=== PATIENT | male | born 1985 | race Caucasian/White ===

== ENCOUNTER 2022-02-12 22:25 | Emergency (ER) | payer MEDICAID, OTHER ==
[2022-02-12] MEDS ORDERED: SODIUM CHLORIDE 0.9% 1,000 ML IV ONE (22:47)
[2022-02-12] MEDS ORDERED: MORPHINE SULFATE 4 MG/ML SYRINGE IV STA (22:49)
[2022-02-12] MEDS ORDERED: ONDANSETRON 4 MG/2 ML VIAL IVP STA (22:49)
--- NOTE | 2022-02-12 22:56 | ED ---
Skin/Abscess/FB HPI - General Chief complaint: Skin/Abscess/Foreign Body Stated complaint: boil on back Time Seen by Provider: 02/12/22 22:37 Source: patient, RN notes reviewed Mode of arrival: ambulatory Limitations: no limitations - History of Present Illness Initial comments: This is a pleasant 36-year-old male who presents with recurrent abscesses to his right buttock area. Patient states that he initially had an abscess when he was a teenager to the area. However the past months he's had several abscesses. patient had incision and drainage done in late December [facility]. Patient subsequently was seen twice for follow-up in that ER and was put on antibiotics twice. States that the abscess continues to be problematic. He is finish the antibiotics he is now getting drainage from the right buttock area. No headache, no fever or chills, no changes in vision or hearing, no sore throat or difficulty with speech, no neck pain, no chest pain or shortness of breath, no abdominal pain, no nausea or vomiting, no changes in urination or bowel movements, no numbness or tingling, no extremity pain, no skin rashes or lesion s. Past medical, surgical, social, and family history reviewed. No history of MRSA - Related Data Previous Rx's Medication Instructions Recorded Citalopram Hydrobromide [CeleXA] 30 mg PO DAILY@1800 #21 tab 05/30/15 Divalproex [Depakote] 250 mg PO TID #21 tablet. 05/30/15 Clindamycin [Cleocin] 450 mg PO Q8H #90 cap 02/13/22 Allergies Allergy/AdvReac Type Severity Reaction Status Date / Time No Known Allergies Allergy Verified 02/12/22 22:33 Review of Systems ROS Statement: Those systems with pertinent positive or pertinent negative responses have been documented in the HPI. ROS Other: All systems not noted in ROS Statement are negative. Past Medical History Additional Past Medical History / Comment(s): depression, anxiety. Seasonal allergies History of Any Multi-Drug Resistant Organisms: None Reported Past Surgical History: No Surgical Hx Reported Past Anesthesia/Blood Transfusion Reactions: No Reported Reaction Past Psychological History: ADD/ADHD, Anxiety, Depression Smoking Status: Current every day smoker Past Alcohol Use History: Occasional Past Drug Use History: Marijuana - Past Family History Father Family Medical History: Cancer, Coronary Artery Disease (CAD), Myocardial Infarction ([place]), Prostate Disorder Additional Family Medical History / Comment(s): father is alive at age 55 with history of diabetes, coronary artery disease, myocardial infarction, prostate cancer, alcoholism Mother Family Medical History: Hypertension Additional Family Medical History / Comment(s): Mother is alive at age 50 with history of hypertension and hypoglycemia. Patient has 2 brothers and 1 sister with no major medical problems. Patient does not have any children. General Exam - General Exam Comments Initial Comments: Patient does not appear to be systemically ill. Vital signs reviewed. Capillary refill less than 2 seconds. No mottling. Adequate skin turgor. Limitations: no limitations General appearance: alert, in no apparent distress Head exam: Present: atraumatic, normocephalic, normal inspection Eye exam: Present: normal appearance, PERRL, EOMI. Absent: scleral icterus, conjunctival injection, periorbital swelling ENT exam: Present: normal exam, mucous membranes moist Neck exam: Present: normal inspection, full ROM. Absent: tenderness, meningismus, lymphadenopathy Respiratory exam: Present: normal lung sounds bilaterally. Absent: respiratory distress, wheezes, rales, rhonchi, stridor Cardiovascular Exam: Present: regular rate, normal rhythm, normal heart sounds. Absent: systolic murmur, diastolic murmur, rubs, gallop, clicks GI/Abdominal exam: Present: soft, normal bowel sounds. Absent: distended, tenderness, guarding, rebound, rigid Rectal exam: Present: normal inspection, normal rectal tone Extremities exam: Present: normal inspection, full ROM, normal capillary refill. Absent: tenderness, pedal edema, joint swelling, calf tenderness Back exam: Present: normal inspection Neurological exam: Present: alert, oriented X3, CN II-XII intact Psychiatric exam: Present: normal affect, normal mood Skin exam: Present: warm, dry, erythema, other (Patient has a large, multiloculated area encompassing the right buttock. Patient has purulent drainage noted from the area. There may be communication with the rectal wall which is difficult to ascertain.). Absent: rash Course Vital Signs 02/12/22 02/13/22 22:30 00:34 Temperature 98.9 F 98.3 F Pulse Rate 77 65 Respiratory 20 18 Rate Blood Pressure 190/90 145/84 O2 Sat by Pulse 98 96 Oximetry - Reevaluation(s) Reevaluation #1: 02/13/22 00:59 Medical record is reviewed Symptoms are improved here in the emergency department Patient is informed of results and questions answered Patient in no distress Medical Decision Making - Medical Decision Making Physical exam findings consistent with a multiloculated right buttock abscess with possible communication to the rectal wall Computed tomography scan shows skin thickening in the medial right buttock consistent with phlegmon and cellulitis, appears new compared to the old CT. There is increased subcutaneous density involving the medial right buttock measuring up to 1.5 cm in thickness. No drainable fluid collection. Total length of the vomitus approximately 12 cm. Rectum appears to be intact. No perirectal fluid. No evidence scrotal mass. Given the physical exam findings. I believe much of the soft tissue changes related to scar tissue. Patient has had multiple abscesses in the same area. Patient is hemodynamically stable. I did offer incision and drainage to the patient. However he is already having some drainage from the area. Patient is deferring this stating that he will take the antibiotics and continue with warm compresses. We'll have the patient follow-up with the on-call surgeon. Patient was told to return to the ER for any signs or symptoms worsen. Told to return immediately if any other problems arise. All questions answered. Treatment plan discussed. Patient in agreement Every effort has been made to ensure accuracy of this dictation. However, due to the limitations of electronic medical records and dictation devices, errors in charting still occur. The case was discussed in detail with ED attending physician. Presentation, findings, treatment plan discussed in detail. Protection Analyst Dr. Paul - Lab Data Result diagrams: 02/12/22 23:14 02/12/22 23:14 Lab Results 02/12/22 02/12/22 Range/Units 23:14 23:14 WBC 10.4 (3.8-10.6) k/uL RBC 4.56 (4.30-5.90) m/uL Hgb 15.0 (13.0-17.5) gm/dL Hct 43.1 (39.0-53.0) % MCV 94.5 (80.0-100.0) fL MCH 32.9 (25.0-35.0) pg MCHC 34.8 (31.0-37.0) g/dL RDW 12.3 (11.5-15.5) % Plt Count 253 (150-450) k/uL MPV 8.7 Neutrophils % 70 % Lymphocytes % 19 % Monocytes % 7 % Eosinophils % 1 % Basophils % 0 % Neutrophils # 7.3 (1.3-7.7) k/uL Lymphocytes # 2.0 (1.0-4.8) k/uL Monocytes # 0.7 (0-1.0) k/uL Eosinophils # 0.1 (0-0.7) k/uL Basophils # 0.1 (0-0.2) k/uL Sodium 139 (137-145) mmol/L Potassium 3.9 (3.5-5.1) mmol/L Chloride 109 H (98-107) mmol/L Carbon Dioxide 23 (22-30) mmol/L Anion Gap 7 mmol/L BUN 13 (9-20) mg/dL Creatinine 0.85 (0.66-1.25) mg/dL Est GFR (CKD-EPI)AfAm >90 (>60 ml/min/1.73 sqM) Est GFR (CKD-EPI)NonAf >90 (>60 ml/min/1.73 sqM) Glucose 110 H (74-99) mg/dL Calcium 8.7 (8.4-10.2) mg/dL Total Bilirubin 0.4 (0.2-1.3) mg/dL AST 26 (17-59) U/L ALT 25 (4-49) U/L Alkaline Phosphatase 94 (38-126) U/L Total Protein 7.3 (6.3-8.2) g/dL Albumin 4.3 (3.5-5.0) g/dL - Radiology Data Radiology results: report reviewed, image reviewed Interpreted by me: I interpreted the computed tomography scan results. Concur with radiology interpretation Disposition Clinical Impression: Cellulitis and abscess of buttock Disposition: HOME SELF-CARE Condition: Good Additional Instructions: Take antibiotics as directed. Warm compresses for 10-15 minutes at a time 4 times daily. Promote continued drainage. You can call back here in 2-3 days to get the wound culture results. Make an appointment with both the primary care physician, Dr. Wilkinson, and the on-call surgeon, Dr. Rdoriguez. Follow-up with your regular physician as directed. Return to the ER immediately if any symptoms worsen, new symptoms arise, or any other problems develop. Is patient prescribed a controlled substance at d/c from ED?: No Referrals: Isaiah Wilkinson DO [Doctor of Osteopathic Medicine] - 02/17/22 Les Rodriguez MD [STAFF PHYSICIAN] - As Soon As Possible Time of Disposition: 00:59
[2022-02-12] MEDS ORDERED: CLINDAMYCIN 900 MG in DEXTROSE 5% IN WATER 50 ML IVPB ONE ×2 (23:00)
[2022-02-12 23:26] LABS: Basophils # (A) 0.1 k/uL (0-0.2); Basophils % (A) 0 %; Eosinophils # (A) 0.1 k/uL (0-0.7); Eosinophils % (A) 1 %; HCT 43.1 % (39.0-53.0); Lymphocytes % (A) 19 %; MCH 32.9 pg (25.0-35.0); MCHC 34.8 g/dL (31.0-37.0); MCV 94.5 fL (80.0-100.0); Mean Platelet Volume 8.7; Monocytes # (A) 0.7 k/uL (0-1.0); Monocytes % (A) 7 %; Neutrophils # (A) 7.3 k/uL (1.3-7.7); Neutrophils % (A) 70 %; Platelet Count 253 k/uL (150-450); RBC 4.56 m/uL (4.30-5.90); RDW 12.3 % (11.5-15.5); WBC 10.4 k/uL (3.8-10.6)
[2022-02-12 23:40] LABS: ALT 25 U/L (4-49); AST 26 U/L (17-59); African American GFR (CKD) >90 (>60 ml/min/1.73 sqM); Albumin 4.3 g/dL (3.5-5.0); Alkaline Phosphatase 94 U/L (38-126); Anion Gap 7 mmol/L; Blood Urea Nitrogen 13 mg/dL (9-20); Calcium 8.7 mg/dL (8.4-10.2); Carbon Dioxide 23 mmol/L (22-30); Chloride 109 mmol/L (98-107); Glucose 110 mg/dL (74-99); Non-African American GFR(CKD) >90 (>60 ml/min/1.73 sqM); Potassium 3.9 mmol/L (3.5-5.1); Sodium 139 mmol/L (137-145); Total Bilirubin 0.4 mg/dL (0.2-1.3); Total Protein 7.3 g/dL (6.3-8.2)
--- NOTE | 2022-02-13 00:15 | CT ---
EXAMINATION TYPE: CT pelvis w con DATE OF EXAM: 02/12/2022 COMPARISON: 04/06/2015 HISTORY: abscess, right buttock top to bottom. pt has had it lanced & been on antibiotics prior. no p revious on pacs CT DLP: 1437.8 mGycm Automated exposure control for dose reduction was used. CONTRAST: Performed with IV Contrast, patient injected with 100 mL of Isovue 300. Images obtained from the iliac crests to the bottom of the scrotum and the mid shaft of the femurs wi th the IV contrast. There is no free fluid in the pelvis. Bladder distends smoothly. No pelvic mass. No inguinal hernia. No evidence of a bowel obstruction. Appendix is posterior and appears normal. There are sigmoid diver ticula. No diverticulitis. The sacrum and coccyx appear intact. Bony pelvis is intact. Hip joints zeny ear normal. There is increased subcutaneous density involving the medial right buttock that measures up to 1.5 cm in thickness. No drainable fluid collection. The total length of involvement is approximately 12 cm. The rectum appears intact. No perirectal fluid. No evidence of scrotal mass. IMPRESSION: Skin thickening in the medial right buttock consistent with phlegmon and cellulitis. This appears new compared to old CT scan.
[2022-02-13 00:36] VITALS: TEMP 98.3
[2022-02-13 01:59] VITALS: BP 129/84; PULSE 64; RESP 16
== END 2022-02-13 02:01 | disposition home or self-care (01) ==
LOC: EC 22:25
DX: L03.317 Cellulitis of buttock (principal); L02.31 Cutaneous abscess of buttock; F32.A Depression, unspecified; F41.9 Anxiety disorder, unspecified; F17.200 Nicotine dependence, unspecified, uncomplicated; F12.90 Cannabis use, unspecified, uncomplicated
CPT/HCPCS: 36415; 80053; 85025; 87070; 87205; 87075; 72193; 99284; 96365; 96375 ×2; 96376; 96361 ×2; J2270; J2405; Q9967

== ENCOUNTER 2022-04-21 20:08 | Inpatient (IN) | payer OTHER ==
--- NOTE | 2022-04-21 21:51 | ED ---
Skin/Abscess/FB HPI - General Chief complaint: Skin/Abscess/Foreign Body Stated complaint: boil on back Time Seen by Provider: 04/21/22 21:48 Source: patient, RN notes reviewed Mode of arrival: ambulatory Limitations: no limitations - History of Present Illness Initial comments: Patient is a 36-year-old male presenting to the emergency room with complaints of worsening of a cyst to his buttocks. He reports that he has had multiple cysts to his buttocks and reports that his last antibiotic therapy was in February of last year. He reports that the size and areas of drainage have increased significantly. He had been advised in the past that he would need surgical intervention but has not followed up with the surgeon outpatient. He re ports attempting to keep the area clean and dry with no improvement in his abscesses. He denies any systemic symptoms including any chest pain, shortness of breath, abdominal pain, nausea, vomiting, fevers or chills. In addition to recurrent cyst to the buttocks he has a past medical history significant for depression, anxiety, and seasonal allergies. - Related Data Previous Rx's Medication Instructions Recorded Cephalexin [Keflex] 500 mg PO Q6HR 10 Days #40 cap 04/25/22 Allergies Allergy/AdvReac Type Severity Reaction Status Date / Time No Known Allergies Allergy Verified 02/12/22 22:33 Review of Systems ROS Statement: Those systems with pertinent positive or pertinent negative responses have been documented in the HPI. ROS Other: All systems not noted in ROS Statement are negative. Past Medical History Additional Past Medical History / Comment(s): depression, anxiety. Seasonal al lergies History of Any Multi-Drug Resistant Organisms: None Reported Past Surgical History: No Surgical Hx Reported Past Anesthesia/Blood Transfusion Reactions: No Reported Reaction Past Psychological History: ADD/ADHD, Anxiety, Depression Smoking Status: Current every day smoker Past Alcohol Use History: Occasional Past Drug Use History: Marijuana - Past Family History Father Family Medical History: Cancer, Coronary Artery Disease (CAD), Myocardial Infarction ([place]), Prostate Disorder Additional Family Medical History / Comment(s): father is alive at age 55 with history of diabetes, coronary artery disease, myocardial infarction, prostate cancer, alcoholism Mother Family Medical History: Hypertension Additional Family Medical History / Comment(s): Mother is alive at age 50 with history of hypertension and hypoglycemia. Patient has 2 brothers and 1 sister with no major medical problems. Patient does not have any children. General Exam - General Exam Comments Initial Comments: GENERAL: No acute distress, well developed, well nourished. HEENT: Normocephalic, atraumatic. Pupils equal, round, reactive to light. Moist mucous membranes. LUNGS: No respiratory distress. Clear to auscultation, no adventitious sounds, no use of accessory muscles. HEART: Regular rate and rhythm without murmur, rub, or gallop. ABDOMEN: Normal bowel sounds. Soft, non-tender, non-distended. BACK: Normal inspection. EXTREMITIES: No edema. No tenderness. Moves all extremities. NEUROLOGIC: Alert & oriented x 3. CN II-XII grossly intact. PSYCHIATRIC: Normal affect and behavior. DERMATOLOGIC: Right buttocks with multiple abscesses tunneling and induration noted. Foul odor and purulent drainage noted from 3 different sites. Culture obtained from lower midline abscess. Limitations: no limitations Course Vital Signs 04/21/22 04/22/22 21:22 01:04 Temperature 98.2 F Pulse Rate 82 79 Respiratory 14 15 Rate Blood Pressure 162/89 144/84 O2 Sat by Pulse 98 99 Oximetry Medical Decision Making - Medical Decision Making Was pt. sent in by a medical professional or institution (, PA, SENIOR SALES REPRESENTATIVE, urgent care, hospital, or residential...) When possible be specific @ -No Did you speak to anyone other than the patient for history (EMS, parent, family, police, friend...)? What history was obtained from this source @ -No Did you review nursing and triage notes (agree or disagree)? Why? @ -I reviewed and agree with nursing and triage notes Were old charts reviewed (outside hosp., previous admission, EMS record, old EKG, old radiological studies, urgent care reports/EKG's, residential records)? Report findings @ -No old charts were reviewed Differential Diagnosis (chest pain, altered mental status, abdominal pain women, abdominal pain men, vaginal bleeding, weakness, fever, dyspnea, syncope, headache, dizziness, GI bleed, back pain, seizure, CVA, palpatations, mental health)? @ -Differential Fever: Cellulitis, osteomyelitis, sepsis, reoccurring worsening pilonidal cyst, this is not meant to be an all-inclusive list. EKG interpreted by me (3pts min.). @ -None done X-rays interpreted by me (1pt min.). @ -None done CT interpreted by me (1pt min.). @ -None done U/S interpreted by me (1pt. min.). @ -None done What testing was considered but not performed or refused? (CT, X-rays, U/S, labs)? Why? @ -None What meds were considered but not given or refused? Why? @ -None Did you discuss the management of the patient with other professionals (professionals i.e. , PA, SENIOR SALES REPRESENTATIVE, lab, RT, psych nurse, social worker school, sustainable systems analyst, teacher, security public safety officer, rifle case repairer)? Give summary @ -Spoke with Dr. Rivers on-call for [facility] call regarding recommendation for admission. He is accepting of admission. Was smoking cessation discussed for >3mins.? @ -No Was critical care preformed (if so, how long)? @ -No Were there social determinants of health that impacted care today? How? (Homelessness, low income, unemployed, alcoholism, drug addiction, transportation, low edu. Level, literacy, decrease access to med. care, alf, rehab)? @ -No Was there de-escalation of care discussed even if they declined (Discuss DNR or withdrawal of care, Hospice)? DNR status @ -No What co-morbidities impacted this encounter? (DM, HTN, Smoking, COPD, CAD, Cancer, CVA, ARF, Chemo, Hep., AIDS, mental health diagnosis, sleep apnea, morbid obesity)? @ -History of recurrent pilonidal cyst Was patient admitted / discharged? Hospital course, mention meds given and route, prescriptions, significant lab abnormalities, going to OR and other pertinent info. @ -36-year-old male presenting to the emergency room with complaints of increased pain and drainage from right buttocks. Known pilonidal cysts with previous antibiotic treatment without improvement in symptoms. Increase in track and number of abscesses since last antibiotic therapy. No indication for diagnostic imaging at this time, will obtain wound culture, blood cultures, CBC CMP and lactic acid. Will give morphine for pain and start on antibiotic therapy. Labs without abnormalities on CBC, CMP or lactic acid. Cultures pending. Pain improved with morphine and tolerated Rocephin well. Findings discussed with patient at length. Advised that given increase in track and induration though no significant abnormalities on laboratory studies would likely benefit from hospitalization with broadened antibiotic therapy and surgical consult. Patient is agreeable to hospitalization. Spoke with Dr. Rivers on-call for [facility] call regarding recommendation of admission. He is accepting of admission and recommend surgical consult. Will p lace admission orders with surgical consult. Will start on vancomycin with 2 g now then pharmacy to dose. Will admit patient in stable condition to [facility] for continued evaluation and treatment for pilonidal cyst. Undiagnosed new problem with uncertain prognosis? @ -No Drug Therapy requiring intensive monitoring for toxicity (Heparin, Nitro, Insulin, Cardizem)? @ -No Were any procedures done? @ -No Diagnosis/symptom? @ -Pilonidal cysts with track and failed outpatient therapy Acute, or Chronic, or Acute on Chronic? @ -Acute on chronic Uncomplicated (without systemic symptoms) or Complicated (systemic symptoms)? @ -Complicated Side effects of treatment? @ -No Exacerbation, Progression, or Severe Exacerbation? @ -No Poses a threat to life or bodily function? How? (Chest pain, [place], [place], pneumonia, PE, COPD, DKA, ARF, appy, cholecystitis, CVA, Diverticulitis, Homicidal, Suicidal, threat to staff... and all critical care pts) @ -Yes Case discussed with Dr. Calvillo - Lab Data Result diagrams: 04/25/22 05:18 04/25/22 05:18 Lab Results 04/21/22 04/21/22 04/21/22 Range/Units 22:27 22:27 22:27 WBC 8.9 (3.8-10.6) k/uL RBC 4.66 (4.30-5.90) m/uL Hgb 14.9 (13.0-17.5) gm/dL Hct 43.4 (39.0-53.0) % MCV 93.1 (80.0-100.0) fL MCH 31.9 (25.0-35.0) pg MCHC 34.3 (31.0-37.0) g/dL RDW 12.6 (11.5-15.5) % Plt Count 230 (150-450) k/uL MPV 7.5 Neutrophils % 65 % Lymphocytes % 23 % Monocytes % 8 % Eosinophils % 2 % Basophils % 1 % Neutrophils # 5.8 (1.3-7.7) k/uL Lymphocytes # 2.1 (1.0-4.8) k/uL Monocytes # 0.7 (0-1.0) k/uL Eosinophils # 0.1 (0-0.7) k/uL Basophils # 0.1 (0-0.2) k/uL Sodium 139 (137-145) mmol/L Potassium 4.3 (3.5-5.1) mmol/L Chloride 106 (98-107) mmol/L Carbon Dioxide 26 (22-30) mmol/L Anion Gap 7 mmol/L BUN 16 (9-20) mg/dL Creatinine 0.81 (0.66-1.25) mg/dL Est GFR (CKD-EPI)AfAm >90 (>60 ml/min/1.73 sqM) Est GFR (CKD-EPI)NonAf >90 (>60 ml/min/1.73 sqM) Glucose 94 (74-99) mg/dL Plasma Lactic Acid [place] 1.1 (0.7-2.0) mmol/L Calcium 8.8 (8.4-10.2) mg/dL Total Bilirubin 0.7 (0.2-1.3) mg/dL AST 26 (17-59) U/L ALT 26 (4-49) U/L Alkaline Phosphatase 88 (38-126) U/L Total Protein 7.7 (6.3-8.2) g/dL Albumin 4.3 (3.5-5.0) g/dL Disposition Clinical Impression: Pilonidal cyst with abscess Disposition: ADMITTED IP TO THIS [facility] Condition: Good Is patient prescribed a controlled substance at d/c from ED?: No Time of Disposition: 23:55
[2022-04-21 22:48] LABS: Basophils # (A) 0.1 k/uL (0-0.2); Basophils % (A) 1 %; Eosinophils # (A) 0.1 k/uL (0-0.7); Eosinophils % (A) 2 %; HCT 43.4 % (39.0-53.0); HGB 14.9 gm/dL (13.0-17.5); Lymphocytes # (A) 2.1 k/uL (1.0-4.8); Lymphocytes % (A) 23 %; MCH 31.9 pg (25.0-35.0); MCHC 34.3 g/dL (31.0-37.0); MCV 93.1 fL (80.0-100.0); Mean Platelet Volume 7.5; Monocytes # (A) 0.7 k/uL (0-1.0); Monocytes % (A) 8 %; Neutrophils # (A) 5.8 k/uL (1.3-7.7); Neutrophils % (A) 65 %; Platelet Count 230 k/uL (150-450); RBC 4.66 m/uL (4.30-5.90); RDW 12.6 % (11.5-15.5); WBC 8.9 k/uL (3.8-10.6)
[2022-04-21] MEDS ORDERED: MORPHINE SULFATE 4 MG/ML SYRINGE IVP STA (22:51)
[2022-04-21] MEDS ORDERED: cefTRIAXone IN SWFI 1,000 MG/10 ML SYRINGE IVP ONE (23:00)
[2022-04-21 23:08] LABS: ALT 26 U/L (4-49); AST 26 U/L (17-59); African American GFR (CKD) >90 (>60 ml/min/1.73 sqM); Albumin 4.3 g/dL (3.5-5.0); Alkaline Phosphatase 88 U/L (38-126); Anion Gap 7 mmol/L; Blood Urea Nitrogen 16 mg/dL (9-20); Calcium 8.8 mg/dL (8.4-10.2); Carbon Dioxide 26 mmol/L (22-30); Chloride 106 mmol/L (98-107); Glucose 94 mg/dL (74-99); Non-African American GFR(CKD) >90 (>60 ml/min/1.73 sqM); Potassium 4.3 mmol/L (3.5-5.1); Sodium 139 mmol/L (137-145); Total Bilirubin 0.7 mg/dL (0.2-1.3); Total Protein 7.7 g/dL (6.3-8.2)
[2022-04-22] MEDS ORDERED: ACETAMINOPHEN TAB 325 MG TAB PO PRN (00:05)
[2022-04-22] MEDS ORDERED: NALOXONE 0.4 MG/ML 1 ML VIAL IV PRN (00:05)
[2022-04-22] MEDS ORDERED: VANCOMYCIN IV PER PHARMACY 1 EACH MISC MISCELLANE PRN (00:07)
[2022-04-22] MEDS ORDERED: VANCOMYCIN 2,000 MG in SODIUM CHLORIDE 0.9% 500 ML 500 ML IVPB ONE (01:00)
[2022-04-22] MEDS: NICOTINE 21MG/24HR PATCH TRANSDERM SCH (08:42)
[2022-04-22] MEDS: MORPHINE SULFATE 4 MG/ML SYRINGE IV PRN ×2 (09:53→18:13)
[2022-04-22] MEDS: VANCOMYCIN 1,750 MG in SODIUM CHLORIDE 0.9% 500 ML 500 ML IVPB SCH ×2 (10:49→18:00)
[2022-04-22] MEDS: HYDROcodone/APAP 5-325MG 1 EACH TAB PO PRN (13:32)
[2022-04-22] MEDS: IOPAMIDOL CONTRAST (ORAL USE) VIAL PO PRN ×2 (14:39→15:33)
[2022-04-22] MEDS ORDERED: DIVALPROEX 250 MG TABLET.DR PO SCH (16:00)
--- NOTE | 2022-04-22 16:23 | P.GSCN ---
History of Present Illness Consult date: 04/22/22 History of present illness: CHIEF COMPLAINT: Right buttocks abscess HISTORY OF PRESENT ILLNESS: This is a 36-year-old male with a known history of pilonidal cyst. Patient supposedly failed outpatient treatment of the power model cyst. He's had this cyst for about 7 years. Patient reports that he has now developed multiple cysts along the right but I'll ask. He had a laceration of to the areas in the ER at [facility] and was discharged with antibiotics. However, the abscesses have reformed. He has mild drainage from the lower abscess on the right buttocks. I he does report pain. Denies any fever chills or sweats. Patient has had a prior recommendation to follow-up with the surgeon however patient had declined in the past. Denies any history of diabetes. Patient seen and examined with Dr. spivey PAST MEDICAL HISTORY: See below PAST SURGICAL HISTORY: See below MEDICATIONS: See below ALLERGIES: See below SOCIAL HISTORY: No illicit drug use. REVIEW OF SYSTEMS: CONSTITUTIONAL: Denies fever or chills. HEENT: Denies blurred vision, vision changes, or eye pain. Denies hemoptysis CARDIOVASCULAR: Denies chest pain or pressure. RESPIRATORY: No shortness of breath. GASTROINTESTINAL: See HPI for pertinent findings HEMATOLOGIC: Denies bleeding disorders. GENITOURINARY: Denies any blood in urine or increased urinary frequency. SKIN: Denies pruitis. Denies rash. PHYSICAL EXAM: VITAL SIGNS: Reviewed GENERAL: Well-developed in no acute distress. HEENT: No sclera icterus. Extraocular movements grossly intact. Moist buccal mucosa. Head is atraumatic, normocephalic. No nasal drainage. ABDOMEN: Soft. Nondistended. Nontender NEUROLOGIC: Alert and oriented. Cranial nerves II through XII grossly intact. Buttocks: 4 areas of induration and tenderness noted on the right gluteus. Minimal drainage noted from the abscess the distal aspect of the right gluteus. Also noted bruising around the abscessed areas. Very small nontender pilonidal cyst noted. LABORATORY DATA: WBC is 8.9 Hgb 14.9 platelets 2:30 Sodium is 139 potassium 4.3 creatinine 0.81 Lactic acid 1.1 IMAGING: ASSESSMENT: 1. Multiple right gluteal abscesses PLAN: -Computed tomography scan of the pelvis ordered for evaluation of gluteal abscess -Continue IV antibiotics -Continue supportive care continue supportive care -further recommendations forthcoming depending on computed tomography scan results Physician Neonatal Specialist note has been reviewed by physician. Signing provider agrees with the documented findings, assessment, and plan of care. Past Medical History Additional Past Medical History / Comment(s): Seasonal allergies. History of Any Multi-Drug Resistant Organisms: None Reported Past Surgical History: No Surgical Hx Reported Additional Past Surgical History / Comment(s): Cyst removed from cheek as a child. Past Anesthesia/Blood Transfusion Reactions: No Reported Reaction Past Psychological History: ADD/ADHD, Anxiety, Depression Smoking Status: Current every day smoker Past Alcohol Use History: Abuse, Daily Additional Past Alcohol Use History / Comment(s): Patient states he drinks about 6 beers a day. Past Drug Use History: Marijuana - Past Family History Father Family Medical History: Cancer, Coronary Artery Disease (CAD), Myocardial Infarction ([place]), Prostate Disorder Additional Family Medical History / Comment(s): father is alive at age 55 with history of diabetes, coronary artery disease, myocardial infarction, prostate cancer, alcoholism Mother Family Medical History: Hypertension Additional Family Medical History / Comment(s): Mother is alive at age 50 with history of hypertension and hypoglycemia. Patient has 2 brothers and 1 sister with no major medical problems. Patient does not have any children. Medications and Allergies Home Medications Medication Instructions Recorded Confirmed Type No Known Home Medications 04/22/22 04/22/22 History Allergies Allergy/AdvReac Type Severity Reaction Status Date / Time No Known Allergies Allergy Verified 02/12/22 22:33 Surgical - Exam Vital Signs Temp Pulse Resp BP Pulse Ox 98.2 F 82 14 162/89 98 04/21/22 21:22 04/21/22 21:22 04/21/22 21:22 04/21/22 21:22 04/21/22 21:22 Results - Labs 04/21/22 22:27 04/21/22 22:27 Diabetes panel 04/21/22 Range/Units 22:27 Sodium 139 (137-145) mmol/L Potassium 4.3 (3.5-5.1) mmol/L Chloride 106 (98-107) mmol/L Carbon Dioxide 26 (22-30) mmol/L BUN 16 (9-20) mg/dL Creatinine 0.81 (0.66-1.25) mg/dL Glucose 94 (74-99) mg/dL Calcium 8.8 (8.4-10.2) mg/dL AST 26 (17-59) U/L ALT 26 (4-49) U/L Alkaline Phosphatase 88 (38-126) U/L Total Protein 7.7 (6.3-8.2) g/dL Albumin 4.3 (3.5-5.0) g/dL Calcium panel 04/21/22 Range/Units 22:27 Calcium 8.8 (8.4-10.2) mg/dL Albumin 4.3 (3.5-5.0) g/dL Pituitary panel 04/21/22 Range/Units 22:27 Sodium 139 (137-145) mmol/L Potassium 4.3 (3.5-5.1) mmol/L Chloride 106 (98-107) mmol/L Carbon Dioxide 26 (22-30) mmol/L BUN 16 (9-20) mg/dL Creatinine 0.81 (0.66-1.25) mg/dL Glucose 94 (74-99) mg/dL Calcium 8.8 (8.4-10.2) mg/dL Adrenal panel 04/21/22 Range/Units 22:27 Sodium 139 (137-145) mmol/L Potassium 4.3 (3.5-5.1) mmol/L Chloride 106 (98-107) mmol/L Carbon Dioxide 26 (22-30) mmol/L BUN 16 (9-20) mg/dL Creatinine 0.81 (0.66-1.25) mg/dL Glucose 94 (74-99) mg/dL Calcium 8.8 (8.4-10.2) mg/dL Total Bilirubin 0.7 (0.2-1.3) mg/dL AST 26 (17-59) U/L ALT 26 (4-49) U/L Alkaline Phosphatase 88 (38-126) U/L Total Protein 7.7 (6.3-8.2) g/dL Albumin 4.3 (3.5-5.0) g/dL
--- NOTE | 2022-04-22 16:28 | CT ---
EXAMINATION TYPE: CT pelvis w con CT DLP: 1320.0 mGycm, Automated exposure control for dose reduction was used. DATE OF EXAM: 04/22/2022 4:[address] pelvis 02/12/2022. CLINICAL INDICATION:Male, 36 years old with history of right gluteal abscess; TECHNIQUE: Standard CT of the pelvis following the administration of 70 cc of Isovue 300 IV contras t material and oral contrast. Coronal and sagittal reformats were performed. FINDINGS: BLADDER: Incompletely distended but grossly unremarkable. REPRODUCTIVE: Unremarkable. BOWEL: Colonic diverticulosis without evidence for acute diverticulitis. Enteric contrast reaches the mid small bowel. The appendix is within normal limits. No evidence of bowel obstruction. PERITONEUM: No evidence of pneumoperitoneum or free fluid. VASCULATURE: Unremarkable. MUSCULOSKELETAL: No acute osseous abnormalities LYMPH NODES: Stable right inguinal enlarged lymph nodes measuring up to 1.5 cm short axis. SOFT TISSUE/ABDOMINAL WALL: There is similar increased curvilinear subcutaneous density above the med ial right buttock that measures up to 1.3 cm in thickness, previously 1.6 cm. This extends along the right buttocks towards the anus approximately 10.3 cm in length similar to prior exam. There is adjac ent fat stranding. No drainable fluid collection identified. IMPRESSION: 1. Similar skin thickening in the medial right buttock without drainable fluid collection. Findings suggest phlegmon with cellulitis versus possible perianal fistula. 2. Stable right inguinal enlarged lymph nodes, likely reactive to #1.
[2022-04-22] MEDS ORDERED: CITALOPRAM HYDROBROMIDE 10 MG TAB PO SCH (18:00)
--- NOTE | 2022-04-22 22:00 | P.CONS ---
History of Present Illness - Reason for Consult Consult date: 04/22/22 Pilonidal cyst Requesting physician: Bakari Rivers - Chief Complaint Right gluteal pain and swelling x few days - History of Present Illness Patient is a 36-year-old male with a past medical history significant for pilonidal cyst started having a problem about 7 years ago and seemed to have problem with recurrent infection patient recently started having issues with right gluteal area abscess and cellulitis for the patient did have drainage done at [facility], patient not sure about the cultures he was treated with antibiotics and pain medication patient presenting to the [facility] ER with increasing pain to the right gluteal area is contaminated to be sharp and pressure almost 10 out of 10 in severity patient mention he did have some drainage which was cultured by the ER physician, patient of presentation hospital is afebrile and no fever has been followed subsequently patient White Count Patient Was Started on Vancomycin and Infectious Disease Was Consulted for Further Management of Antibiotic Therapy Review of Systems Positive point has been mentioned in the HPI rest of the systems are negative Past Medical History Additional Past Medical History / Comment(s): Seasonal allergies. History of Any Multi-Drug Resistant Organisms: None Reported Past Surgical History: No Surgical Hx Reported Additional Past Surgical History / Comment(s): Cyst removed from cheek as a child. Past Anesthesia/Blood Transfusion Reactions: No Reported Reaction Past Psychological History: ADD/ADHD, Anxiety, Depression Smoking Status: Current every day smoker Past Alcohol Use History: Abuse, Daily Additional Past Alcohol Use History / Comment(s): Patient states he drinks about 6 beers a day. Past Drug Use History: Marijuana - Past Family History Father Family Medical History: Cancer, Coronary Artery Disease (CAD), Myocardial Infarction ([place]), Prostate Disorder Additional Family Medical History / Comment(s): father is alive at age 55 with history of diabetes, coronary artery disease, myocardial infarction, prostate cancer, alcoholism Mother Family Medical History: Hypertension Additional Family Medical History / Comment(s): Mother is alive at age 50 with history of hypertension and hypoglycemia. Patient has 2 brothers and 1 sister with no major medical problems. Patient does not have any children. Medications and Allergies Home Medications Medication Instructions Recorded Confirmed Type Cephalexin [Keflex] 500 mg PO Q6HR 10 Days #40 cap 04/25/22 Rx Allergies Allergy/AdvReac Type Severity Reaction Status Date / Time No Known Allergies Allergy Verified 02/12/22 22:33 Physical Exam Vitals: Vital Signs Temp Pulse Pulse Resp BP BP Pulse Ox 04/22/22 07:00 97.4 F L 69 16 148/100 97 04/22/22 01:56 61 16 04/22/22 01:13 98 F 61 16 136/82 99 04/22/22 01:04 79 15 144/84 99 04/21/22 21:22 98.2 F 82 14 162/89 98 Intake and Output 04/21/22 04/22/22 04/22/22 22:59 06:59 14:59 Intake Total 118 Balance 118 Intake: Oral 118 Other: Voiding Method Toilet # Voids 1 Weight 112.945 kg 112.945 kg GENERAL DESCRIPTION: Middle-aged male lying in bed, no distress. No tachypnea or accessory muscle of respiration use. HEENT: Shows Pallor , no scleral icterus. Oral mucous membrane is dry. No pharyngeal erythema or thrush NECK: Trachea central, no thyromegaly. LUNGS: Unlabored breathing. Clear to auscultation anteriorly. No wheeze or crackle. HEART: S1, S2, regular rate and rhythm. No loud murmur ABDOMEN: Soft, no tenderness , guarding or rigidity, no organomegaly EXTREMITIES: No edema of feet. SKIN: No rash, no masses palpable. Right gluteal area did have areas of induration swelling or redness no foul-smelling drainage NEUROLOGICAL: The patient is awake, alert, oriented x3, mood and affect normal. Results CBC & Chem 7: 04/25/22 05:18 04/25/22 05:18 Assessment and Plan (1) Abscess, gluteal, right Current Visit: Yes Status: Acute Code(s): L02.31 - CUTANEOUS ABSCESS OF BUTTOCK SNOMED Code(s): 68410508 Plan: 1patient with a right total abscess and cellulitis keeping in mind recurrent infection high clinical suspicious for staphylococcal infection and question of possible community associated MRSA 2patient has been evaluated by general surgery, CT of the pelvis has been ordered and results will be followed 3patient benefit from drainage and deep culture 4Vancomycin pharmacy to dose target trough of 15 while watching kidney function and Vanco trough closely We will follow on clinical condition and cultures to further adjust medication if needed Thank you for this consultation will follow this patient with you Time with Patient: Greater than 30
[2022-04-23] MEDS: VANCOMYCIN 1,750 MG in SODIUM CHLORIDE 0.9% 500 ML 500 ML IVPB SCH ×3 (01:19→17:46)
[2022-04-23] MEDS: NICOTINE 21MG/24HR PATCH TRANSDERM SCH (08:16)
[2022-04-23] MEDS: HYDROcodone/APAP 5-325MG 1 EACH TAB PO PRN ×3 (08:19→21:21)
[2022-04-23] MEDS ORDERED: VANCOMYCIN TROUGH DUE 1 EACH MISC MISCELLANE ONE (09:00)
--- NOTE | 2022-04-23 10:41 | HP ---
HISTORY AND PHYSICAL HISTORY OF PRESENT ILLNESS: A 36-year-old white male came into the hospital with pilonidal cyst, worsening over the entire right buttock area, area of medial 1/3rd of the buttock in the right buttock, abscesses reformed. He has been admitted. . He has multiple worsening irritation with mild drainage in the lower aspect of the right buttock. There is significant fluctuance and redness to this area. IV antibiotics started. Infectious Disease surgical consult. HOME MEDICINES: Negative. FAMILY HISTORY: Negative. SOCIAL HISTORY: Negative. ALLERGIES: Negative. REVIEW OF SYSTEMS: A 14-point review of systems negative except as mentioned in HPI. PHYSICAL EXAMINATION: CARDIOVASCULAR S1, S2. LUNGS: Clear. GI: Soft. HEMATOLOGY: Negative for Homans. PSYCH: Fair mood and affect. NEUROLOGIC: Alert and oriented x3. LABORATORY DATA: White count is 8.9, hemoglobin is 14.9, and platelets 230. Sodium 139, potassium 4.3, creatinine 0.8. Lactic acid 1.1. ASSESSMENT: Multiple right gluteal abscesses. CT of the abdomen and pelvis is ordered. PLAN: Continue with broad-spectrum antibiotics. Wait for Infectious Disease surgical consult. Prognosis guarded. Please see further orders. MMODL / IJN: [id number] /
[2022-04-23 11:06] LABS: African American GFR (CKD) >90 (>60 ml/min/1.73 sqM); Non-African American GFR(CKD) >90 (>60 ml/min/1.73 sqM)
--- NOTE | 2022-04-23 13:05 | P.PN ---
Subjective Progress Note Date: 04/23/22 Principal diagnosis: Right gluteal abscess and cellulitis Patient is a 36-year-old male with a past medical history significant for recurrent right gluteal abscess and cellulitis previously drained at [facility] however the patient is not clear about culture results. Presenting with increasing pain and swelling to the right gluteal area and drainage patient apparently mentioned swab was taken in the ER however seemed to have not been sent for culture, patient did have a CT of the pelvis completed 04/22/2022 did not mention any drainable abscess. On today's evaluation that is 04/23/2022, the patient denies having any fever or any chills, the patient pain to the right gluteal area has slightly decreased intensity and no further drainage no chest pain shortness of breath or cough no abdominal pain no diarrhea Objective - Vital Signs Vital signs: Vital Signs Temp 97.7 F 04/23/22 08:00 Pulse 61 04/23/22 08:00 Resp 18 04/23/22 08:00 BP 131/81 04/23/22 08:00 Pulse Ox 99 04/23/22 08:00 FiO2 Intake & Output 04/22/22 04/23/22 04/23/22 18:59 06:59 18:59 Intake Total 854 120 Balance 854 120 Intake: Intake, IV Titration 500 Amount Vancomycin 1,750 mg In 500 Sodium Chloride 0.9% 500 ml 500 ml @ 167 mls/hr IVPB Q8H [facility] Rx#: [id number] Oral 354 120 Other: Voiding Method Toilet Toilet # Voids 3 2 # Bowel Movements 1 - Exam GENERAL DESCRIPTION: A middle-age male lying in bed in no distress RESPIRATORY SYSTEM: Unlabored breathing , decreased breath sounds at bases HEART: S1 S2 regular rate and rhythm , ABDOMEN: Soft , no tenderness, right gluteal area swelling and induration has slightly decreased EXTREMITIES: No edema feet - Labs CBC & Chem 7: 04/21/22 22:27 04/23/22 10:15 Labs: Microbiology - Last 24 Hours (Table) 04/21/22 22:17 Blood Culture - Preliminary Blood No Growth after 24 hours 04/21/22 22:27 Blood Culture - Preliminary Blood No Growth after 24 hours Assessment and Plan (1) Abscess, gluteal, right Current Visit: Yes Status: Acute Code(s): L02.31 - CUTANEOUS ABSCESS OF BUTTOCK SNOMED Code(s): 93300297 Plan: 1patient with a right total abscess and cellulitis keeping in mind recurrent infection high clinical suspicious for staphylococcal infection and question of possible community associated MRSA 2patient has been evaluated by general surgery, CT of the pelvis did not show any drainable abscess 3we will try to locate any culture done in the ER 4patient to continue with Vancomycin pharmacy to dose target trough of 15 while watching kidney function and Vanco trough closely Time with Patient: Less than 30
--- NOTE | 2022-04-23 13:31 | P.PN ---
Subjective Progress Note Date: 04/23/22 CHIEF COMPLAINT: Right buttock cellulitis and area of induration HISTORY OF PRESENT ILLNESS: Patient continues to have pain in the right gluteal area. Reports minimal drainage. Computed tomography scan of the pelvis shows similar skin thickening in the medial right buttock without drainable fluid collection. Findings suggest phlegmon with cellulitis versus possible perianal fistula. Stable right inguinal enlarged lymph nodes likely reactive to the the inflammation. Patient is afebrile. White count 8.9. Currently on IV antibiotics and followed by infectious disease. Patient seen and examined with Dr. Rodriguez PHYSICAL EXAM: VITAL SIGNS: Reviewed. GENERAL: Well-developed in no acute distress. HEENT: No sclera icterus. Extraocular movements grossly intact. Moist buccal mucosa. Head is atraumatic, normocephalic. ABDOMEN: Soft. Nondistended. Nontender. NEUROLOGIC: Alert and oriented. Cranial nerves II through XII grossly intact. Buttocks: Right gluteal area with 4 areas of induration and tenderness. Minimal drainage at the most distal aspect. Areas are more bruised. ASSESSMENT: 1. Right gluteal phlegmon with cellulitis and possible perianal fistula. No evidence of a drainable fluid collection on computed tomography scan PLAN: -No surgical intervention planned -Recommend to continue antibiotics per infectious disease -Recommend colonoscopy outpatient Physician Heel Varnisher note has been reviewed by physician. Signing provider agrees with the documented findings, assessment, and plan of care. Objective - Vital Signs Vital signs: Vital Signs Temp 97.7 F 04/23/22 08:00 Pulse 61 04/23/22 08:00 Resp 18 04/23/22 08:00 BP 131/81 04/23/22 08:00 Pulse Ox 99 04/23/22 08:00 FiO2 Intake & Output 04/22/22 04/23/22 04/23/22 18:59 06:59 18:59 Intake Total 854 120 Balance 854 120 Intake: Intake, IV Titration 500 Amount Vancomycin 1,750 mg In 500 Sodium Chloride 0.9% 500 ml 500 ml @ 167 mls/hr IVPB Q8H [facility] Rx#: [id number] Oral 354 120 Other: Voiding Method Toilet Toilet # Voids 3 2 # Bowel Movements 1 - Labs CBC & Chem 7: 04/21/22 22:27 04/23/22 10:15 Labs: Microbiology - Last 24 Hours (Table) 04/21/22 22:17 Blood Culture - Preliminary Blood No Growth after 24 hours 04/21/22 22:27 Blood Culture - Preliminary Blood No Growth after 24 hours
[2022-04-24] MEDS: VANCOMYCIN 1,750 MG in SODIUM CHLORIDE 0.9% 500 ML 500 ML IVPB SCH ×3 (01:57→18:29)
[2022-04-24] MEDS: NICOTINE 21MG/24HR PATCH TRANSDERM SCH (11:10)
--- NOTE | 2022-04-24 12:14 | P.PN ---
Subjective Progress Note Date: 04/24/22 CHIEF COMPLAINT: Right buttock cellulitis and area of induration HISTORY OF PRESENT ILLNESS: Patient reports that his pain is gone. He feels that the swelling and inflammation have resolved. He is afebrile. No drainage. Patient has 1 positive blood culture coagulase negative staph which may be a contaminant. Repeat blood culture shows no growth on culture pending. Patient seen and examined with Dr. Rodriguez PHYSICAL EXAM: VITAL SIGNS: Reviewed. GENERAL: Well-developed in no acute distress. HEENT: No sclera icterus. Extraocular movements grossly intact. Moist buccal mucosa. Head is atraumatic, normocephalic. ABDOMEN: Soft. Nondistended. Nontender. NEUROLOGIC: Alert and oriented. Cranial nerves II through XII grossly intact. Buttocks: Right gluteal area with 4 areas of induration has decreased. Decreased tenderness. ASSESSMENT: 1. Right gluteal phlegmon with cellulitis and possible perianal fistula. No evidence of a drainable fluid collection on computed tomography scan PLAN: -No surgical intervention planned -Discharge antibiotics per infectious disease -Recommend colonoscopy outpatient -Patient can be discharged from surgical standpoint when medically stable Physician Digital Intern note has been reviewed by physician. Signing provider agrees with the documented findings, assessment, and plan of care. Objective - Vital Signs Vital signs: Vital Signs Temp 98.1 F 04/24/22 08:00 Pulse 53 L 04/24/22 08:00 Resp 16 04/24/22 08:00 BP 142/88 04/24/22 08:00 Pulse Ox 97 04/24/22 08:00 FiO2 Intake & Output 04/23/22 04/24/22 04/24/22 18:59 06:59 18:59 Intake Total 245 298 Balance 245 298 Intake: Oral 245 298 Other: Voiding Method Toilet Toilet # Voids 4 2 # Bowel Movements 2 - Labs CBC & Chem 7: 04/21/22 22:27 04/23/22 10:15 Labs: Microbiology - Last 24 Hours (Table) 04/21/22 22:27 Blood Culture - Preliminary Blood No Growth after 48 hours 04/23/22 15:52 Wound Culture - Preliminary Buttock 04/21/22 22:17 Blood Culture Gram Stain - Preliminary Blood Blood Culture - Preliminary Coagulase Negative Staph 04/21/22 22:17 Blood Culture - Final Blood
--- NOTE | 2022-04-24 13:32 | P.PN ---
Subjective Progress Note Date: 04/24/22 Principal diagnosis: Right gluteal abscess and cellulitis Patient is a 36-year-old male with a past medical history significant for recurrent right gluteal abscess and cellulitis previously drained at [facility] however the patient is not clear about culture results. Presenting with increasing pain and swelling to the right gluteal area and drainage patient apparently mentioned swab was taken in the ER however seemed to have not been sent for culture, patient did have a CT of the pelvis completed 04/22/2022 did not mention any drainable abscess. On today's evaluation that is 04/24/2022, the patient continues to be afebrile, the patient pain to the right gluteal area has decreased intensity and the patient denies further drainage from the area, no chest pain shortness of breath or cough no abdominal pain no diarrhea Objective - Vital Signs Vital signs: Vital Signs Temp 98.1 F 04/24/22 08:00 Pulse 53 L 04/24/22 08:00 Resp 16 04/24/22 08:00 BP 142/88 04/24/22 08:00 Pulse Ox 97 04/24/22 08:00 FiO2 Intake & Output 04/23/22 04/24/22 04/24/22 18:59 06:59 18:59 Intake Total 245 298 Balance 245 298 Intake: Oral 245 298 Other: Voiding Method Toilet Toilet # Voids 4 2 # Bowel Movements 2 - Exam GENERAL DESCRIPTION: A middle-age male lying in bed in no distress RESPIRATORY SYSTEM: Unlabored breathing , decreased breath sounds at bases HEART: S1 S2 regular rate and rhythm , ABDOMEN: Soft , no tenderness, right gluteal area swelling and induration has slightly decreased, no drainage was noticed EXTREMITIES: No edema feet - Labs CBC & Chem 7: 04/21/22 22:27 04/23/22 10:15 Labs: Microbiology - Last 24 Hours (Table) 04/21/22 22:27 Blood Culture - Preliminary Blood No Growth after 48 hours 04/23/22 15:52 Wound Culture - Preliminary Buttock 04/21/22 22:17 Blood Culture Gram Stain - Preliminary Blood Blood Culture - Preliminary Coagulase Negative Staph 04/21/22 22:17 Blood Culture - Final Blood Assessment and Plan (1) Abscess, gluteal, right Current Visit: Yes Status: Acute Code(s): L02.31 - CUTANEOUS ABSCESS OF BUTTOCK SNOMED Code(s): 50685700 Plan: 1patient with a right total abscess and cellulitis keeping in mind recurrent infection high clinical suspicious for staphylococcal infection and question of possible community associated MRSA 2patient has been evaluated by general surgery, CT of the pelvis did not show any drainable abscess 3positive blood culture with a goal weight is negative staph likely skin contamination, local cultures obtained yesterday so far pending 4patient has shows some clinical improvement however still have significantly area of induration hence would recommend to continue with Vancomycin pharmacy to dose target trough of 15 for another 24 hour before transitioning to oral antibiotic this was explained to the patient in layman terms questions concerned were answered Time with Patient: Less than 30
[2022-04-24] MEDS: HYDROcodone/APAP 5-325MG 1 EACH TAB PO PRN ×2 (13:56→20:01)
[2022-04-25] MEDS: VANCOMYCIN 1,750 MG in SODIUM CHLORIDE 0.9% 500 ML 500 ML IVPB SCH ×2 (02:36→10:26)
--- NOTE | 2022-04-25 03:06 | PN ---
PROGRESS NOTE SUBJECTIVE: A 36-year-old white male admitted with cellulitis of the buttocks. He has false- positive blood cultures due to skin contamination. OBJECTIVE: CARDIOVASCULAR: S1, S2. LUNGS: Clear. GI: Soft. PSYCHIATRIC: Fair mood and affect. ASSESSMENT: False-positive blood cultures due to skin contamination, dermatitis in PROGNOSIS: Guarded. Switch to oral antibiotics tomorrow on discharge, the patient is stable medically. MMODL / IJN: [id number] /
[2022-04-25 05:48] LABS: Basophils # (A) 0.1 k/uL (0-0.2); Basophils % (A) 2 %; Eosinophils # (A) 0.1 k/uL (0-0.7); Eosinophils % (A) 2 %; HCT 46.9 % (39.0-53.0); HGB 15.4 gm/dL (13.0-17.5); Lymphocytes # (A) 1.5 k/uL (1.0-4.8); Lymphocytes % (A) 24 %; MCH 32.5 pg (25.0-35.0); MCHC 32.9 g/dL (31.0-37.0); Mean Platelet Volume 8.6; Monocytes # (A) 0.6 k/uL (0-1.0); Monocytes % (A) 9 %; Neutrophils % (A) 61 %; Platelet Count 221 k/uL (150-450); RBC 4.75 m/uL (4.30-5.90); RDW 12.9 % (11.5-15.5); WBC 6.5 k/uL (3.8-10.6)
[2022-04-25 05:49] LABS: MCV 98.7 fL (80.0-100.0)
[2022-04-25 07:11] LABS: African American GFR (CKD) >90 (>60 ml/min/1.73 sqM); Anion Gap 6 mmol/L; Blood Urea Nitrogen 13 mg/dL (9-20); C Reactive Protein 0.5 mg/dL (<1.0); Calcium 8.9 mg/dL (8.4-10.2); Carbon Dioxide 24 mmol/L (22-30); Chloride 109 mmol/L (98-107); Glucose 101 mg/dL (74-99); Non-African American GFR(CKD) >90 (>60 ml/min/1.73 sqM); Potassium 4.4 mmol/L (3.5-5.1); Sodium 139 mmol/L (137-145)
[2022-04-25 08:13] VITALS: RESP 16
[2022-04-25] MEDS: NICOTINE 21MG/24HR PATCH TRANSDERM SCH (09:26)
--- NOTE | 2022-04-25 13:05 | P.PN ---
Subjective Progress Note Date: 04/25/22 CHIEF COMPLAINT: Right buttock cellulitis and area of induration HISTORY OF PRESENT ILLNESS: Patient reports that his pain is gone. He feels ready for discharge. Afebrile. WBC 6.5 hemoglobin 15.4 Patient seen and examined with Dr. Rodriguez PHYSICAL EXAM: VITAL SIGNS: Reviewed. GENERAL: Well-developed in no acute distress. HEENT: No sclera icterus. Extraocular movements grossly intact. Moist buccal mucosa. Head is atraumatic, normocephalic. ABDOMEN: Soft. Nondistended. Nontender. NEUROLOGIC: Alert and oriented. Cranial nerves II through XII grossly intact. Buttocks: Right gluteal area with 4 areas of induration has decreased. Decreased tenderness. ASSESSMENT: 1. Right gluteal phlegmon with cellulitis and possible perianal fistula. No evidence of a drainable fluid collection on computed tomography scan PLAN: -No surgical intervention planned -Discharge antibiotics per infectious disease -Recommend colonoscopy outpatient -Patient can be discharged from surgical standpoint Physician Power Bender Operator note has been reviewed by physician. Signing provider agrees with the documented findings, assessment, and plan of care. Objective - Vital Signs Vital signs: Vital Signs Temp 98.0 F 04/25/22 08:00 Pulse 55 L 04/25/22 08:00 Resp 16 04/25/22 08:00 BP 156/80 04/25/22 08:00 Pulse Ox 99 04/25/22 08:00 FiO2 Intake & Output 04/24/22 04/25/22 04/25/22 18:59 06:59 18:59 Intake Total 977 118 Balance 977 118 Intake: Oral 977 118 Other: Voiding Method Toilet # Voids 3 3 # Bowel Movements 1 - Labs CBC & Chem 7: 04/25/22 05:18 04/25/22 05:18 Labs: Abnormal Lab Results - Last 24 Hours (Table) 04/25/22 Range/Units 05:18 Chloride 109 H (98-107) mmol/L Glucose 101 H (74-99) mg/dL Microbiology - Last 24 Hours (Table) 04/21/22 22:17 Blood Culture Gram Stain - Final Blood Blood Culture - Final Coagulase Negative Staph 04/21/22 22:27 Blood Culture - Preliminary Blood No Growth after 72 hours 04/23/22 19:58 Blood Culture - Preliminary Blood No Growth after 24 hours 04/23/22 15:52 Gram Stain - Preliminary Buttock Wound Culture - Preliminary Beta Hemolytic Strep Group C
[2022-04-25 14:27] VITALS: BP 161/87; PULSE 73; TEMP 97.4
--- NOTE | 2022-04-25 14:56 | P.PN ---
Subjective Progress Note Date: 04/25/22 Principal diagnosis: Right gluteal abscess and cellulitis Patient is a 36-year-old male with a past medical history significant for recurrent right gluteal abscess and cellulitis previously drained at [facility] however the patient is not clear about culture results. Presenting with increasing pain and swelling to the right gluteal area and drainage patient apparently mentioned swab was taken in the ER however seemed to have not been sent for culture, patient did have a CT of the pelvis completed 04/22/2022 did not mention any drainable abscess. On today's evaluation that is 04/25/2022, the patient denies any fever or any chills, the patient pain to the right gluteal area has decreased intensity and the patient denies further drainage , the patient denies chest pain shortness of breath or cough no abdominal pain no diarrhea, patient is feeling better wants to go home Objective - Vital Signs Vital signs: Vital Signs Temp 98.0 F 04/25/22 08:00 Pulse 55 L 04/25/22 08:00 Resp 16 04/25/22 08:00 BP 156/80 04/25/22 08:00 Pulse Ox 99 04/25/22 08:00 FiO2 Intake & Output 04/24/22 04/25/22 04/25/22 18:59 06:59 18:59 Intake Total 977 118 Balance 977 118 Intake: Oral 977 118 Other: Voiding Method Toilet # Voids 3 3 # Bowel Movements 1 - Exam GENERAL DESCRIPTION: A middle-age male lying in bed in no distress RESPIRATORY SYSTEM: Unlabored breathing , decreased breath sounds at bases HEART: S1 S2 regular rate and rhythm , ABDOMEN: Soft , no tenderness, right gluteal area swelling and induration has slightly decreased, no drainage was noticed EXTREMITIES: No edema feet - Labs CBC & Chem 7: 04/25/22 05:18 04/25/22 05:18 Labs: Abnormal Lab Results - Last 24 Hours (Table) 04/25/22 Range/Units 05:18 Chloride 109 H (98-107) mmol/L Glucose 101 H (74-99) mg/dL Microbiology - Last 24 Hours (Table) 04/21/22 22:17 Blood Culture Gram Stain - Final Blood Blood Culture - Final Coagulase Negative Staph 04/21/22 22:27 Blood Culture - Preliminary Blood No Growth after 72 hours 04/23/22 19:58 Blood Culture - Preliminary Blood No Growth after 24 hours 04/23/22 15:52 Gram Stain - Preliminary Buttock Wound Culture - Preliminary Beta Hemolytic Strep Group C Assessment and Plan (1) Abscess, gluteal, right Current Visit: Yes Status: Acute Code(s): L02.31 - CUTANEOUS ABSCESS OF BUTTOCK SNOMED Code(s): 89290851 Plan: 1patient with a right total abscess and cellulitis keeping in mind recurrent infection high clinical suspicious for staphylococcal infection and question of possible community associated MRSA 2patient has been evaluated by general surgery, CT of the pelvis did not show any drainable abscess 3positive blood culture with a goal weight is negative staph likely skin contamination, local cultures currently growing group C streptococcus 4patient has shows some clinical improvement , we will give him a dose of Rocephin 2 g times one now afterwards plan to finish therapy with oral Keflex prescription was sent to the pharmacy and close outpatient follow-up Time with Patient: Less than 30
[2022-04-26] MEDS ORDERED: VANCOMYCIN TROUGH DUE 1 EACH MISC MISCELLANE ONE (09:00)
== END 2022-04-25 16:07 | disposition home or self-care (01) | DRG 603 ==
LOC: EC 20:08 → 6NMEDSUR 04-22 00:08
PROVIDERS: ADMIT Family Medicine; ATTEND Family Medicine
DX: L05.01 Pilonidal cyst with abscess (principal); L03.317 Cellulitis of buttock; B95.4 Other streptococcus as the cause of diseases classified elsewhere; L02.222 Furuncle of back [any part, except buttock and flank]; F17.210 Nicotine dependence, cigarettes, uncomplicated; B95.7 Other staphylococcus as the cause of diseases classified elsewhere; K60.3 Anal fistula; R59.0 Localized enlarged lymph nodes; Z79.899 Other long term (current) drug therapy; Z82.49 Family history of ischemic heart disease and other diseases of the circulatory system
CPT/HCPCS: 36415; 72193; 80048; 80053; 80202; 82565; 83605; 85025; 86140; 87040; 87070; 87205; 96374; 96375; 99284

== ENCOUNTER → 2022-05-04 | Emergency (ER) | payer OTHER ==
[~2022-05-04] MED LIST: SODIUM CHLORIDE 0.9% 1,000 ML IV ONE
--- NOTE | 2022-05-04 16:45 | ED ---
General Adult HPI - General Chief complaint: Skin/Abscess/Foreign Body Stated complaint: boil on bottom Time Seen by Provider: 05/04/22 16:29 Source: patient, RN notes reviewed Mode of arrival: ambulatory Limitations: no limitations - History of Present Illness Initial comments: 36-year-old male presents emergency Department with chief complaint of abscess. Patient was evaluated here on . He was admitted for IV antibiotics for which he believed was helping his abscess. He is on day 9 f Keflex and reports worsening discharge from the R glute. Denies known fevers however he admits that he has had some chills. He reports that he took Tylenol and Motrin with relief. Patient reports that he has a follow-up appointment tomorrow 05/05/2022 with his primary care doctor. - Related Data Previous Rx's Medication Instructions Recorded Cephalexin [Keflex] 500 mg PO Q6HR 10 Days #40 cap 04/25/22 HYDROcodone/APAP 5-325MG [[place] 5] 1 each PO Q6HR PRN #6 tab 05/04/22 Sulfamethox-Tmp 800-160Mg [Bactrim 1 each PO Q12HR #20 tab 05/04/22 Ds] Allergies Allergy/AdvReac Type Severity Reaction Status Date / Time No Known Allergies Allergy Verified 05/04/22 16:23 Review of Systems ROS Statement: Those systems with pertinent positive or pertinent negative responses have been documented in the HPI. ROS Other: All systems not noted in ROS Statement are negative. Past Medical History Additional Past Medical History / Comment(s): depression, anxiety. Seasonal allergies History of Any Multi-Drug Resistant Organisms: None Reported Past Surgical History: No Surgical Hx Reported Additional Past Surgical History / Comment(s): Cyst removed from cheek as a child. Past Anesthesia/Blood Transfusion Reactions: No Reported Reaction Past Psychological History: ADD/ADHD, Anxiety, Depression Smoking Status: Current every day smoker Past Alcohol Use History: Occasional Past Drug Use History: Marijuana - Past Family History Father Family Medical History: Cancer, Coronary Artery Disease (CAD), Myocardial Infarction (NH), Prostate Disorder Additional Family Medical History / Comment(s): father is alive at age 55 with history of diabetes, coronary artery disease, myocardial infarction, prostate cancer, alcoholism Mother Family Medical History: Hypertension Additional Family Medical History / Comment(s): Mother is alive at age 50 with history of hypertension and hypoglycemia. Patient has 2 brothers and 1 sister with no major medical problems. Patient does not have any children. General Exam Limitations: no limitations General appearance: alert, in no apparent distress Head exam: Present: atraumatic, normocephalic, normal inspection Eye exam: Present: normal appearance, PERRL, EOMI. Absent: scleral icterus, conjunctival injection, periorbital swelling ENT exam: Present: normal exam, mucous membranes moist Neck exam: Present: normal inspection. Absent: tenderness, meningismus, lymphadenopathy Respiratory exam: Present: normal lung sounds bilaterally. Absent: respiratory distress, wheezes, rales, rhonchi, stridor Cardiovascular Exam: Present: regular rate, normal rhythm, normal heart sounds. Absent: systolic murmur, diastolic murmur, rubs, gallop, clicks GI/Abdominal exam: Present: soft, normal bowel sounds. Absent: distended, tenderness, guarding, rebound, rigid Extremities exam: Present: normal inspection, full ROM, normal capillary refill. Absent: tenderness, pedal edema, joint swelling, calf tenderness Back exam: Present: normal inspection Neurological exam: Present: alert, oriented X3, CN II-XII intact Psychiatric exam: Present: normal affect, normal mood Skin exam: Present: warm, dry, intact, normal color, other (Right gluteal abscess with ecchymosis that is tender to palpation, no fluctuance, no active drainage ). Absent: rash Course Vital Signs 05/04/22 05/04/22 16:19 18:50 Temperature 97.9 F 98.2 F Pulse Rate 89 98 Respiratory 18 16 Rate Blood Pressure 162/96 142/86 O2 Sat by Pulse 99 98 Oximetry - Reevaluation(s) Reevaluation #1: 05/04/22 patient re-evaluated and updated on results. Patient agreeable with plan to discharge home. 18:30 Medical Decision Making - Medical Decision Making Was pt. sent in by a medical professional or institution (, PA, DRUG ABUSE TECHNICIAN, urgent care, hospital, or retirement...) When possible be specific @ -[No] Did you speak to anyone other than the patient for history (EMS, parent, family, police, friend...)? What history was obtained from this source @ -[No] Did you review nursing and triage notes (agree or disagree)? Why? @ -[I reviewed and agree with nursing and triage notes] Were old charts reviewed (outside hosp., previous admission, EMS record, old EKG, old radiological studies, urgent care reports/EKG's, retirement records)? Report findings @ -[No old charts were reviewed] Differential Diagnosis (chest pain, altered mental status, abdominal pain women, abdominal pain men, vaginal bleeding, weakness, fever, dyspnea, syncope, headache, dizziness, GI bleed, back pain, seizure, CVA, palpatations, mental health)? @ -[not applicable] EKG interpreted by me (3pts min.). @ -[As above] X-rays interpreted by me (1pt min.). @ -[None done] CT interpreted by me (1pt min.). @ -[None done] U/S interpreted by me (1pt. min.). @ -[None done] What testing was considered but not performed or refused? (CT, X-rays, U/S, labs)? Why? @ -[None] What meds were considered but not given or refused? Why? @ -[None] Did you discuss the management of the patient with other professionals (professionals i.e. , PA, DRUG ABUSE TECHNICIAN, lab, RT, psych nurse, social science research assistant, cartridge assembling machine adjuster, teacher, parachute/combatant diver officer, case finisher)? Give summary @ -[No] Was smoking cessation discussed for >3mins.? @ -[No] Was critical care preformed (if so, how long)? @ -[No] Were there social determinants of health that impacted care today? How? (Homelessness, low income, unemployed, alcoholism, drug addiction, transportation, low edu. Level, literacy, decrease access to med. care, detention, rehab)? @ -[No] Was there de-escalation of care discussed even if they declined (Discuss DNR or withdrawal of care, Hospice)? DNR status @ -[No] What co-morbidities impacted this encounter? (DM, HTN, Smoking, COPD, CAD, C ancer, CVA, ARF, Chemo, Hep., AIDS, mental health diagnosis, sleep apnea, morbid obesity)? @ -[None] Was patient admitted / discharged? Hospital course, mention meds given and route, prescriptions, significant lab abnormalities, going to OR and other pertinent info. @ 36 -year-old female presents to the emergency department with a gluteal abscess. Patient had thorough history and physical performed, patient is afebrile right gluteal abscess that is fluctuant with no marked erythema or flu shots or active drainage. Patient had lab work and imaging performed lab work reveals WBCs 11.1 hemoglobin 15.0, lactic acid 2.3. CT abdomen and pelvis reveals no accumulation of pus or evidence of any drainable abscess . I discussed the results in detail with the patient, all questions and concerns were addressed. Patient was instructed to continue taking his Keflex as prescribed in addition to adding Bactrim twice a day for 7 days. Patient was also given 6 [place] for pain relief. Patient was encouraged to follow up with Dr. Rivers tomorrow follow-up. Patient was discharged in stable condition. I discussed the case with Dr. Andrews [facility] who agrees with plan of care. Undiagnosed new problem with uncertain prognosis? @ -[No] Drug Therapy requiring intensive monitoring for toxicity (Heparin, Nitro, Insulin, Cardizem)? @ -[No] Were any procedures done? @ -[No] Diagnosis/symptom? @ -R gluteal abscess Acute, or Chronic, or Acute on Chronic? @ acute ] Uncomplicated (without systemic symptoms) or Complicated (systemic symptoms)? @ uncomplicated ] Side effects of treatment? @ -[No] Exacerbation, Progression, or Severe Exacerbation? @ -[No] Poses a threat to life or bodily function? How? (Chest pain, [place], NH, pneumonia, PE, COPD, DKA, ARF, appy, cholecystitis, CVA, Diverticulitis, Homicidal, S uicidal, threat to staff... and all critical care pts) @ -[No] - Lab Data Result diagrams: 05/04/22 16:51 05/04/22 16:51 Lab Results 05/04/22 05/04/22 05/04/22 Range/Units 16:51 16:51 16:51 WBC 11.1 H (3.8-10.6) k/uL RBC 4.75 (4.30-5.90) m/uL Hgb 15.0 (13.0-17.5) gm/dL Hct 43.8 (39.0-53.0) % MCV 92.2 D (80.0-100.0) fL MCH 31.5 (25.0-35.0) pg MCHC 34.1 (31.0-37.0) g/dL RDW 12.6 (11.5-15.5) % Plt Count 264 (150-450) k/uL MPV 7.7 Neutrophils % 74 % Lymphocytes % 17 % Monocytes % 6 % Eosinophils % 1 % Basophils % 0 % Neutrophils # 8.3 H (1.3-7.7) k/uL Lymphocytes # 1.9 (1.0-4.8) k/uL Monocytes # 0.7 (0-1.0) k/uL Eosinophils # 0.1 (0-0.7) k/uL Basophils # 0.1 (0-0.2) k/uL Sodium 138 (137-145) mmol/L Potassium 4.1 (3.5-5.1) mmol/L Chloride 105 (98-107) mmol/L Carbon Dioxide 27 (22-30) mmol/L Anion Gap 6 mmol/L BUN 13 (9-20) mg/dL Creatinine 0.69 (0.66-1.25) mg/dL Est GFR (CKD-EPI)AfAm >90 (>60 ml/min/1.73 sqM) Est GFR (CKD-EPI)NonAf >90 (>60 ml/min/1.73 sqM) Glucose 96 (74-99) mg/dL Plasma Lactic Acid [place] 2.3 H* (0.7-2.0) mmol/L Calcium 8.8 (8.4-10.2) mg/dL Total Bilirubin 0.4 (0.2-1.3) mg/dL AST 28 (17-59) U/L ALT 39 (4-49) U/L Alkaline Phosphatase 95 (38-126) U/L Total Protein 7.9 (6.3-8.2) g/dL Albumin 4.5 (3.5-5.0) g/dL Disposition Clinical Impression: Abscess, gluteal, right Disposition: HOME SELF-CARE Condition: Stable Instructions (If sedation given, give patient instructions): Abscess (ED) Additional Instructions: Please start taking Bactrim along with the Keflex antibiotic. Prescriptions: Sulfamethox-Tmp 800-160Mg [Bactrim Ds] 1 each PO Q12HR #20 tab HYDROcodone/APAP 5-325MG [[place] 5] 1 each PO Q6HR PRN #6 tab PRN Reason: Pain Is patient prescribed a controlled substance at d/c from ED?: No Referrals: None,Stated [Primary Care Provider] - 1-2 days Bakari Rivers MD [STAFF PHYSICIAN] - 1-2 days Saima Hansen MD [STAFF PHYSICIAN] - 1-2 days Time of Disposition: 18:36
[2022-05-04 17:45] LABS: Basophils # (A) 0.1 k/uL (0-0.2); Basophils % (A) 0 %; Eosinophils # (A) 0.1 k/uL (0-0.7); Eosinophils % (A) 1 %; HCT 43.8 % (39.0-53.0); Lymphocytes # (A) 1.9 k/uL (1.0-4.8); Lymphocytes % (A) 17 %; MCH 31.5 pg (25.0-35.0); MCHC 34.1 g/dL (31.0-37.0); Mean Platelet Volume 7.7; Monocytes # (A) 0.7 k/uL (0-1.0); Monocytes % (A) 6 %; Neutrophils # (A) 8.3 k/uL (1.3-7.7); Neutrophils % (A) 74 %; Platelet Count 264 k/uL (150-450); RBC 4.75 m/uL (4.30-5.90); RDW 12.6 % (11.5-15.5); WBC 11.1 k/uL (3.8-10.6)
[2022-05-04 17:52] LABS: MCV 92.2 fL (80.0-100.0)
[2022-05-04 17:55] LABS: ALT 39 U/L (4-49); AST 28 U/L (17-59); African American GFR (CKD) >90 (>60 ml/min/1.73 sqM); Albumin 4.5 g/dL (3.5-5.0); Alkaline Phosphatase 95 U/L (38-126); Anion Gap 6 mmol/L; Blood Urea Nitrogen 13 mg/dL (9-20); Calcium 8.8 mg/dL (8.4-10.2); Carbon Dioxide 27 mmol/L (22-30); Chloride 105 mmol/L (98-107); Glucose 96 mg/dL (74-99); Non-African American GFR(CKD) >90 (>60 ml/min/1.73 sqM); Potassium 4.1 mmol/L (3.5-5.1); Sodium 138 mmol/L (137-145); Total Bilirubin 0.4 mg/dL (0.2-1.3); Total Protein 7.9 g/dL (6.3-8.2)
[2022-05-04] MEDS: LIDOCAINE 1% INJ 10MG/ML (30 ML VIAL-PF) SQ ONE ×2 (18:10→18:57)
--- NOTE | 2022-05-04 18:14 | CT ---
EXAMINATION TYPE: CT abdomen pelvis wo con CT DLP: 1122.4 mGycm, Automated exposure control for dose reduction was used. DATE OF EXAM: 05/04/2022 5:54 PM COMPARISON: CT pelvis 04/22/2022, CT chest abdomen pelvis 04/06/2015 CLINICAL INDICATION:Male, 36 years old with history of gluteal abscess; gluteal abscess TECHNIQUE: Axial CT of the abdomen and pelvis. Sagittal and coronal reformats were created on a [employer] workstation. Contrast used:none Oral contrast used: without Oral Contrast FINDINGS: LOWER CHEST: Unremarkable. ABDOMEN LIVER: Unremarkable GALLBLADDER AND BILE DUCTS: Unremarkable. PANCREAS: Unremarkable. SPLEEN: Unremarkable. ADRENAL GLANDS: Unremarkable. KIDNEYS AND URETERS: No hydronephrosis. Punctate 2 mm right upper pole oculus. The ureters are unrema rkable. PELVIS BLADDER: Unremarkable REPRODUCTIVE: Unremarkable. ABDOMEN & PELVIS STOMACH AND BOWEL: Stomach and duodenum are unremarkable. Scattered diverticula are noted throughout the colon. No evidence of bowel obstruction. PERITONEUM: No evidence of pneumoperitoneum or free fluid. VASCULATURE: No evidence of aortic aneurysm. MUSCULOSKELETAL: No acute osseous abnormalities LYMPH NODES: No gross evidence for lymphadenopathy. SOFT TISSUE/ABDOMINAL WALL: Focal skin thickening of the right gluteal soft tissues (series 201, imag e 97). Soft tissue thickening forms a track extending back to the perianal soft tissues (series 201, image 98). No appreciable subcutaneous emphysema. No drainable fluid collection. IMPRESSION: 1. Right gluteal soft tissue thickening with small tract extending towards the perianal soft tissues without evidence for drainable fluid collection. 2. Nonobstructing 2 mm calculus in the right upper pole. 3. Colonic diverticulosis.
[2022-05-04 18:52] VITALS: BP 142/86; PULSE 98; RESP 16; TEMP 98.2
== END | disposition home or self-care (01) ==
LOC: EC 16:18
DX: L02.31 Cutaneous abscess of buttock (principal); K57.30 Diverticulosis of large intestine without perforation or abscess without bleeding; F90.9 Attention-deficit hyperactivity disorder, unspecified type; F41.9 Anxiety disorder, unspecified; F32.A Depression, unspecified; F17.200 Nicotine dependence, unspecified, uncomplicated; F12.90 Cannabis use, unspecified, uncomplicated
CPT/HCPCS: 36415; 74176; 80053; 83605; 85025; 96360; 99283

== ENCOUNTER 2023-02-03 19:32 | Emergency (ER) | payer OTHER ==
--- NOTE | 2023-02-03 20:02 | ED ---
General Adult HPI - General Chief complaint: GI Bleed Stated complaint: abnormal bowl movements Source: patient Mode of arrival: ambulatory Limitations: no limitations - History of Present Illness Initial comments: 37-year-old male presents to the ED with a chief complaint of abnormal stool. Patient states that he is a drinker. Patient states for the past 3-4 months every time he drinks he has abdominal pain and nausea/vomiting. Denies frequent NSAID use. Patient states over the past 4 days has had dark stools. Also notes intermittent lightheadedness. Denies chest pain or shortness of breath. No other complaints. - Related Data Previous Rx's Medication Instructions Recorded Sulfamethox-Tmp 800-160Mg [Bactrim 1 each PO Q12HR #20 tab 05/04/22 Ds] Acetaminophen Tab [Tylenol] 650 mg PO Q6H #30 tab 05/30/22 Docusate [Colace] 100 mg PO BID #20 capsule 05/30/22 Ibuprofen [Motrin] 600 mg PO Q6HR PRN #40 tab 05/30/22 Sulfamethox-Tmp 800-160Mg [Bactrim 1 tab PO Q12HR #30 tab 05/30/22 DS 800-160 mg] oxyCODONE HCL [OxyIR] 5 mg PO Q6H PRN 3 Days #10 tab 05/30/22 Allergies Allergy/AdvReac Type Severity Reaction Status Date / Time No Known Allergies Allergy Verified 02/03/23 19:49 Review of Systems ROS Statement: Those systems with pertinent positive or pertinent negative responses have been documented in the HPI. ROS Other: All systems not noted in ROS Statement are negative. Past Medical History Past Medical History: GERD/Reflux Additional Past Medical History / Comment(s): Seasonal allergies. Pilonidial cyst. History of Any Multi-Drug Resistant Organisms: None Reported Past Surgical History: No Surgical Hx Reported Additional Past Surgical History / Comment(s): Cyst removed from cheek as a child. Past Anesthesia/Blood Transfusion Reactions: No Reported Reaction Past Psychological History: ADD/ADHD, Anxiety, Depression Smoking Status: Current every day smoker Past Alcohol Use History: Daily Past Drug Use History: Marijuana - Past Family History Father Family Medical History: Cancer, Coronary Artery Disease (CAD), Diabetes Mellitus, Deep Vein Thrombosis (DVT), Myocardial Infarction ([place]), Prostate Disorder Additional Family Medical History / Comment(s): Prostate cancer, alcoholism. Mother Family Medical History: Hypertension Additional Family Medical History / Comment(s): Hypoglycemia. Patient has 2 brothers and 1 sister with no major medical problems. Patient does not have any children. General Exam Limitations: no limitations General appearance: alert, in no apparent distress Neck exam: Present: normal inspection Respiratory exam: Present: normal lung sounds bilaterally Cardiovascular Exam: Present: regular rate, normal rhythm GI/Abdominal exam: Present: soft (No Tenderness palpation. No rebound guarding or rigidity.), normal bowel sounds Rectal exam: Present: other (Chaperoned by [employer]. No gross bleeding. No external hemorrhoids noted. ) Neurological exam: Present: alert, oriented X3 Skin exam: Present: warm, dry Course Vital Signs 02/03/23 19:47 Temperature 98.4 F Pulse Rate 67 Respiratory 20 Rate Blood Pressure 100/62 O2 Sat by Pulse 98 Oximetry Medical Decision Making - Medical Decision Making Was pt. sent in by a medical professional or institution (, PA, ANALYZER SALES, urgent care, hospital, or retirement...) When possible be specific @ -No Did you speak to anyone other than the patient for history (EMS, parent, family, police, friend...)? What history was obtained from this source @ -No Did you review nursing and triage notes (agree or disagree)? Why? @ -I reviewed and agree with nursing and triage notes Were old charts reviewed (outside hosp., previous admission, EMS record, old EKG, old radiological studies, urgent care reports/EKG's, retirement records)? Report findings @ -No old charts were reviewed Differential Diagnosis (chest pain, altered mental status, abdominal pain women, abdominal pain men, vaginal bleeding, weakness, fever, dyspnea, syncope, headache, dizziness, GI bleed, back pain, seizure, CVA, palpatations, mental health, musculoskeletal)? @ -Differential GI Bleed: Esophageal varices, aortoenteric fistula, Luz-Portillo, gastritis, peptic ulcer disease, diverticulosis, inflammatory bowel disease, hemorrhoids, fissure, colitis, malignancy, Meckels diverticulum, this is not meant to be an all- inclusive list. EKG interpreted by me (3pts min.). @ -None X-rays interpreted by me (1pt min.). @ -None done CT interpreted by me (1pt min.). @ -None done U/S interpreted by me (1pt. min.). @ -None done What testing was considered but not performed or refused? (CT, X-rays, U/S, labs)? Why? @ -None What meds were considered but not given or refused? Why? @ -None Did you discuss the management of the patient with other professionals (professionals i.e. Dr., PA, ANALYZER SALES, lab, RT, psych nurse, social sciences department chair, first calender worker, teacher, emergency response officer, registered nurse hh case manager)? Give summary @ -No Was smoking cessation discussed for >3mins.? @ -No Was critical care preformed (if so, how long)? @ -No Were there social determinants of health that impacted care today? How? (Homelessness, low income, unemployed, alcoholism, drug addiction, transportation, low edu. Level, literacy, decrease access to med. care, group home, rehab)? @ -No Was there de-escalation of care discussed even if they declined (Discuss DNR or withdrawal of care, Hospice)? DNR status @ -No What co-morbidities impacted this encounter? (DM, HTN, Smoking, COPD, CAD, Cancer, CVA, ARF, Chemo, Hep., AIDS, mental health diagnosis, sleep apnea, morbid obesity)? @ -None Was patient admitted / discharged? Hospital course, mention meds given and route, prescriptions, significant lab abnormalities, going to OR and other pertinent info. @ -Discharged 37-year-old male presents to the ED with concerns of blood in the stool. Laboratory workup shows CBC and chemistry panel unremarkable. Occult blood negative. This time, vital signs stable afebrile. Patient discharged home with referral to GI. Discussed return precautions with patient who verbalizes agreement. Undiagnosed new problem with uncertain prognosis? @ -No Drug Therapy requiring intensive monitoring for toxicity (Heparin, Nitro, Insulin, Cardizem)? @ -No Were any procedures done? @ -No Diagnosis/symptom? @ -Dark stool Acute, or Chronic, or Acute on Chronic? @ -Acute Uncomplicated (without systemic symptoms) or Complicated (systemic symptoms)? @ -Uncomplicated Side effects of treatment? @ -No Exacerbation, Progression, or Severe Exacerbation? @ -No Poses a threat to life or bodily function? How? (Chest pain, USA, NE, pneumonia, PE, COPD, DKA, ARF, appy, cholecystitis, CVA, Diverticulitis, Homicidal, Suicidal, threat to staff... and all critical care pts) @ -No - Lab Data Result diagrams: 02/03/23 19:59 02/03/23 19:59 Lab Results 02/03/23 02/03/23 02/03/23 Range/Units 19:52 19:59 19:59 WBC 6.8 (3.8-10.6) k/uL RBC 4.54 (4.30-5.90) m/uL Hgb 15.2 (13.0-17.5) gm/dL Hct 43.3 (39.0-53.0) % MCV 95.3 (80.0-100.0) fL MCH 33.6 (25.0-35.0) pg MCHC 35.2 (31.0-37.0) g/dL RDW 12.4 (11.5-15.5) % Plt Count 262 (150-450) k/uL MPV 7.7 Neutrophils % 58 % Lymphocytes % 32 % Monocytes % 6 % Eosinophils % 2 % Basophils % 1 % Neutrophils # 4.0 (1.3-7.7) k/uL Lymphocytes # 2.2 (1.0-4.8) k/uL Monocytes # 0.4 (0-1.0) k/uL Eosinophils # 0.1 (0-0.7) k/uL Basophils # 0.0 (0-0.2) k/uL Sodium 142 (137-145) mmol/L Potassium 4.4 (3.5-5.1) mmol/L Chloride 107 (98-107) mmol/L Carbon Dioxide 20 L (22-30) mmol/L Anion Gap 15 mmol/L BUN 13 (9-20) mg/dL Creatinine 1.05 (0.66-1.25) mg/dL Est GFR (CKD-EPI)AfAm >90 (>60 ml/min/1.73 sqM) Est GFR (CKD-EPI)NonAf 90 (>60 ml/min/1.73 sqM) Glucose 82 (74-99) mg/dL Calcium 8.9 (8.4-10.2) mg/dL Total Bilirubin 0.9 (0.2-1.3) mg/dL AST 33 (17-59) U/L ALT 32 (4-49) U/L Alkaline Phosphatase 71 (38-126) U/L Total Protein 7.8 (6.3-8.2) g/dL Albumin 4.5 (3.5-5.0) g/dL Stool Occult Blood Negative (Negative) Disposition Clinical Impression: Dark stools Disposition: HOME SELF-CARE Condition: Good Instructions (If sedation given, give patient instructions): Gastrointestinal Bleeding (ED) Additional Instructions: Please return to the Emergency Department if symptoms worsen or any other concerns. Please establish primary care. Please follow up with GI. Is patient prescribed a controlled substance at d/c from ED?: No Referrals: Bakari Rivers MD [Primary Care Provider] - 1-2 days Olive Gavin MD [STAFF PHYSICIAN] - 1-2 days Time of Disposition: 21:12
[2023-02-03 20:06] VITALS: TEMP 98.4
[2023-02-03 20:10] LABS: Basophils % (A) 1 %; Eosinophils # (A) 0.1 k/uL (0-0.7); Eosinophils % (A) 2 %; HCT 43.3 % (39.0-53.0); HGB 15.2 gm/dL (13.0-17.5); Lymphocytes # (A) 2.2 k/uL (1.0-4.8); Lymphocytes % (A) 32 %; MCH 33.6 pg (25.0-35.0); MCHC 35.2 g/dL (31.0-37.0); MCV 95.3 fL (80.0-100.0); Mean Platelet Volume 7.7; Monocytes # (A) 0.4 k/uL (0-1.0); Monocytes % (A) 6 %; Neutrophils % (A) 58 %; Platelet Count 262 k/uL (150-450); RBC 4.54 m/uL (4.30-5.90); RDW 12.4 % (11.5-15.5); WBC 6.8 k/uL (3.8-10.6)
[2023-02-03 20:21] LABS: ALT 32 U/L (4-49); AST 33 U/L (17-59); African American GFR (CKD) >90 (>60 ml/min/1.73 sqM); Albumin 4.5 g/dL (3.5-5.0); Alkaline Phosphatase 71 U/L (38-126); Anion Gap 15 mmol/L; Blood Urea Nitrogen 13 mg/dL (9-20); Calcium 8.9 mg/dL (8.4-10.2); Carbon Dioxide 20 mmol/L (22-30); Chloride 107 mmol/L (98-107); Glucose 82 mg/dL (74-99); Non-African American GFR(CKD) 90 (>60 ml/min/1.73 sqM); Potassium 4.4 mmol/L (3.5-5.1); Sodium 142 mmol/L (137-145); Total Bilirubin 0.9 mg/dL (0.2-1.3); Total Protein 7.8 g/dL (6.3-8.2)
[2023-02-03 21:25] VITALS: BP 122/72; PULSE 88; RESP 18
== END 2023-02-03 21:23 | disposition home or self-care (01) ==
LOC: EC 19:32
DX: R19.5 Other fecal abnormalities (principal); F17.200 Nicotine dependence, unspecified, uncomplicated; F12.90 Cannabis use, unspecified, uncomplicated
CPT/HCPCS: 36415; 80053; 82272; 85025; 99284

== ENCOUNTER 2023-06-19 15:52 | Emergency (ER) | payer OTHER ==
[2023-06-19 16:03] VITALS: BP 140/88; PULSE 68; RESP 18; TEMP 98.5
--- NOTE | 2023-06-19 16:24 | ED ---
General Adult HPI - General Chief complaint: Recheck/Abnormal Lab/Rx Stated complaint: Wounds on lower extremities Time Seen by Provider: 06/19/23 16:00 Source: patient Mode of arrival: ambulatory Limitations: no limitations - History of Present Illness Initial comments: This patient is a 37-year-old man with history of previous gluteal abscess/pilonidal cyst, who states that for the past few weeks he has been having symptoms of recurrence. The patient states that he has noticed a little bit of swelling and some tenderness, which has progressively gotten worse such that today he is not able to sit directly on his buttocks. The patient also states he started noticing some drainage today. He has history of previous surgical drainage for similar which was about 1 year ago. Patient has not noted any systemic symptoms, no fevers or chills, palpitations, chest pain, dyspnea or other symptoms. -: week(s) Location: buttocks, right Radiation: non-radiation Quality: aching Consistency: constant Improves with: none Worsens with: other (Palpation) Associated Symptoms: denies other symptoms Treatments Prior to Arrival: none - Related Data Previous Rx's Medication Instructions Recorded Sulfamethox-Tmp 800-160Mg [Bactrim 1 each PO Q12HR #20 tab 05/04/22 Ds] Acetaminophen Tab [Tylenol] 650 mg PO Q6H #30 tab 05/30/22 Docusate [Colace] 100 mg PO BID #20 capsule 05/30/22 Ibuprofen [Motrin] 600 mg PO Q6HR PRN #40 tab 05/30/22 Sulfamethox-Tmp 800-160Mg [Bactrim 1 tab PO Q12HR #30 tab 05/30/22 DS 800-160 mg] oxyCODONE HCL [OxyIR] 5 mg PO Q6H PRN 3 Days #10 tab 05/30/22 Acetaminophen-Codeine 300-30mg 1 tab PO Q4H PRN #20 tablet 06/19/23 [Tylenol w/codeine #3] Sulfamethox-Tmp 800-160Mg [Bactrim 1 each PO Q12HR #28 tab 06/19/23 Ds] Allergies Allergy/AdvReac Type Severity Reaction Status Date / Time No Known Allergies Allergy Verified 06/19/23 15:58 Review of Systems ROS Statement: Those systems with pertinent positive or pertinent negative responses have been documented in the HPI. ROS Other: All systems not noted in ROS Statement are negative. Constitutional: Denies: fever, chills Respiratory: Denies: dyspnea Cardiovascular: Denies: chest pain, palpitations Gastrointestinal: Denies: abdominal pain, vomiting, diarrhea Skin: Reports: as per HPI Past Medical History Past Medical History: GERD/Reflux Additional Past Medical History / Comment(s): Seasonal allergies. Pilonidial cyst. History of Any Multi-Drug Resistant Organisms: None Reported Past Surgical History: No Surgical Hx Reported Additional Past Surgical History / Comment(s): Cyst removed from cheek as a child. Past Anesthesia/Blood Transfusion Reactions: No Reported Reaction Past Psychological History: ADD/ADHD, Anxiety, Depression Smoking Status: Current every day smoker Past Alcohol Use History: Daily Past Drug Use History: Marijuana - Past Family History Father Family Medical History: Cancer, Coronary Artery Disease (CAD), Diabetes Mellitus, Deep Vein Thrombosis (DVT), Myocardial Infarction ([place]), Prostate Disorder Additional Family Medical History / Comment(s): Prostate cancer, alcoholism. Mother Family Medical History: Hypertension Additional Family Medical History / Comment(s): Hypoglycemia. Patient has 2 brothers and 1 sister with no major medical problems. Patient does not have any children. General Exam Limitations: no limitations General appearance: alert, in no apparent distress Head exam: Present: atraumatic, normocephalic GI/Abdominal exam: Present: soft. Absent: tenderness Extremities exam: Present: normal inspection Neurological exam: Present: alert Skin exam: Present: warm, dry, normal color, other (The patient does appear to have some abscess formation to the right buttock. There is currently purulent drainage.) Course Vital Signs 06/19/23 15:55 Temperature 98.5 F Pulse Rate 68 Respiratory 18 Rate Blood Pressure 140/88 O2 Sat by Pulse 99 Oximetry Medical Decision Making - Medical Decision Making Patient is a 37-year-old man who presents with gluteal abscess. The abscess is currently draining. I did offer to further enlarge the tract but that based on the previous history and the way that it seems on palpation that he probably would be best served by having surgical consultation. The patient declined to have any further incision today. Will start antibiotic and analgesic. Di scussed abscess care. Discussed appropriate further care and follow-up as well as return parameters. Was pt. sent in by a medical professional or institution (Dr., PA, INFERTILITY MEDICAL ASSISTANT, urgent care, hospital, or fpc...) When possible be specific @ -[No] Did you speak to anyone other than the patient for history (EMS, parent, family, police, friend...)? What history was obtained from this source @ -[No] Did you review nursing and triage notes (agree or disagree)? Why? @ -[I reviewed and agree with nursing and triage notes] Were old charts reviewed (outside hosp., previous admission, EMS record, old EKG, old radiological studies, urgent care reports/EKG's, fpc records)? Report findings @ -[Yes, old charts were reviewed] Differential Diagnosis (chest pain, altered mental status, abdominal pain women, abdominal pain men, vaginal bleeding, weakness, fever, dyspnea, syncope, headache, dizziness, GI bleed, back pain, seizure, CVA, palpatations, mental health, musculoskeletal)? @ -[Differential Musculoskeletal Muscular strain, contusion, fracture, cellulitis, abscess, muscle spasm, tumor.... This is not meant to be in all inclusive list EKG interpreted by me (3pts min.). @ -[As above] X-rays interpreted by me (1pt min.). @ -[None done] CT interpreted by me (1pt min.). @ -[None done] U/S interpreted by me (1pt. min.). @ -[None done] What testing was considered but not performed or refused? (CT, X-rays, U/S, labs)? Why? @ -[None] What meds were considered but not given or refused? Why? @ -[None] Did you discuss the management of the patient with other professionals (professionals i.e. RUSSEL Blackburn, INFERTILITY MEDICAL ASSISTANT, lab, RT, psych nurse, secondary social studies teacher, operational communication chief, teacher, preventive medicine officer, case repairer)? Give summary @ -[No] Was smoking cessation discussed for >3mins.? @ -[No] Was critical care preformed (if so, how long)? @ -[No] Were there social determinants of health that impacted care today? How? (Homelessness, low income, unemployed, alcoholism, drug addiction, trans portation, low edu. Level, literacy, decrease access to med. care, custodial, rehab)? @ -[No] Was there de-escalation of care discussed even if they declined (Discuss DNR or withdrawal of care, Hospice)? DNR status @ -[No] What co-morbidities impacted this encounter? (DM, HTN, Smoking, COPD, CAD, Cancer, CVA, ARF, Chemo, Hep., AIDS, mental health diagnosis, sleep apnea, morbid obesity)? @ -[None] Was patient admitted / discharged? Hospital course, mention meds given and route, prescriptions, significant lab abnormalities, going to OR and other pertinent info. @ -[As above Undiagnosed new problem with uncertain prognosis? @ -[No] Drug Therapy requiring intensive monitoring for toxicity (Heparin, Nitro, Insulin, Cardizem)? @ -[No] Were any procedures done? @ -[No] Diagnosis/symptom? @ -[Recurrent gluteal abscess Acute, or Chronic, or Acute on Chronic? @ -Acute Uncomplicated (without systemic symptoms) or Complicated (systemic symptoms)? @ -[Uncomplicated Side effects of treatment? @ -[No] Exacerbation, Progression, or Severe Exacerbation? @ -[No] Poses a threat to life or bodily function? How? (Chest pain, USA, [place], pneumonia, PE, COPD, DKA, ARF, appy, cholecystitis, CVA, Diverticulitis, Homicidal, Suicidal, threat to staff... and all critical care pts) @ -[Improperly treated, this can progress to worsening infection/sepsis, however patient manifesting no signs of this. Will have close follow-up and discussed return parameters Disposition Clinical Impression: Abscess, gluteal, right Disposition: HOME SELF-CARE Condition: Good Instructions (If sedation given, give patient instructions): Abscess (ED) Prescriptions: Sulfamethox-Tmp 800-160Mg [Bactrim Ds] 1 each PO Q12HR #28 tab Acetaminophen-Codeine 300-30mg [Tylenol w/codeine #3] 1 tab PO Q4H PRN #20 tablet PRN Reason: Pain Is patient prescribed a controlled substance at d/c from ED?: Yes When asked, does pt state using other controlled substances?: No If prescribed controlled substance>3 days was MAPS reviewed?: Prescribed <3 Days If opioid is for acute pain is fill amount 7 days or less?: Yes If Rx opioid, was Start Talking consent form obtained?: Yes Referrals: Bakari Rivers MD [Primary Care Provider] - 1-2 days Les Rodriguez MD [STAFF PHYSICIAN] - 1-2 days
[2023-06-19] MEDS: SULFAMETH-TMP DS STARTER PACK 2 TAB BTL PO STA (16:45)
[2023-06-19] MEDS: ACET/COD 300 MG/30 MG STARTER PACK 6 TAB BTL PO STA (16:45)
== END 2023-06-19 16:50 | disposition home or self-care (01) ==
LOC: EC 15:52
DX: L02.31 Cutaneous abscess of buttock (principal); F17.200 Nicotine dependence, unspecified, uncomplicated